=== PATIENT | female | born 1985 | race Hispanic/Latino ===

== ENCOUNTER 2020-05-11 08:19 | Emergency (ER) | payer SELFPAY ==
[2020-05-11] MEDS ORDERED: MEPERIDINE HCL 50 MG/ML ONE (09:26)
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
[2020-05-11] MEDS ORDERED: KETOROLAC 30 MG/ML INJ ONE (10:34)
[2020-05-11 10:48] VITALS: BP 121/91; TEMP 98.4; O2SAT 100
== END 2020-05-11 10:39 | disposition home or self-care (01) ==
LOC: ER 08:19
DX: S16.1XXA Strain of muscle, fascia and tendon at neck level, initial encounter (principal); S20.219A Contusion of unspecified front wall of thorax, initial encounter; V49.40XA Driver injured in collision with unspecified motor vehicles in traffic accident, initial encounter; F17.210 Nicotine dependence, cigarettes, uncomplicated
CPT/HCPCS: 71260; 72125; 96374; 96375; 99284; J2175; Q9967

== ENCOUNTER 2024-03-14 21:29 | Emergency (ER) | payer SELFPAY ==
--- OUTSIDE RECORDS SUMMARY | 2024-03-14 21:32 | XMS REPORT | Continuity of Care Document ---
Author Name Unknown Address [address] [place] [address]. [phone] [facility] thconnect Address [address] [place] [address] [phone] Care Team Providers Care Weather Anchor Name Role Phone KATHERINE VERDUZCO Attending Clinician Unavailable RODERICK MITCHELL Attending Clinician Unavailable [id number] Attending Clinician Unavailable CHASTITY CONWAY Attending Clinician Unavailab SEBAS Delgado Attending Clinician UnavailFARHAD Ford Attending Clinician UnaMARCY Sanchez Attending Clinician Unavail able LAB03 Attending Clinician Unavailable BOY JORDAN Attending Clinician Unavailable Sebastian Attending Clinician Unavailable Sebastian Admitting Clinician Unavailable Payers Payer Name Policy Type Policy Number Effective Date Expirati on Date Source AETNA [facility] 94 [place] 9 [id number] 2024 00:00:00 AETNA [facility] 2 [id number] 2024 00:00:00 Social History Social Habit Start Date Stop Date Quantity Comments Source Sexual orientation K shannon Pinto - External History of Social function 2024-01-17 00:00:00 2024-01-17 00:00:00 Kim Pinto - External Sex assigned at 1985 00:00:00 1985 00:00:00 Kim Pinto - External Smoking Status Start Date Stop Date Source Tobacco smoking consumption unknown Kim Pinto - External Medications Ordered Medication Name Filled Medication Name Start Date Stop Date Current Medication? Ordering Clinician Indication Dosage Frequency Signature (SIG) Comments Components Source Escitalopra m Oxalate 10 MG oral Tablet 01-16 00:00: 00 Yes [id number] 10mg Take 1 tablet (10 mg total) by mouth daily. Kim Harrisondon - Externa l Encounters Start Date/Time End Date/Time Encounter Type Admission Type Attending Rust Care Department Encounter ID Source 2024-05-10 10:00:00 2024-05-10 10:00:00 Outpatient KATHERINE VERDUZCO KIM ALVAREZ [id number] [facility] 2024-03-23 10:30:00 2024-03-23 10:30:00 Outpatient STEPHENRODERICK KIM ALVAREZ [id number] [facility] 2024-03-02 08:00:00 2024-03-02 08:00:00 Outpatient LAB59 KIM ALVAREZ [id number] [facility] 2024-02-24 10:00:00 2024-02-24 10:00:00 Outpatient LAB59 [facility] [id number] [facility]-17 13:30:00 2024-02-17 13:30:00 Outpatient CHASTITY CONWAY [id number] [facility] 2024-02-17 10:30:00 2024-02-17 10:30:00 Outpatient SEBAS MASSEY [id number] [facility] 2024-02-17 10:00:00 2024-02-17 10:00:00 Outpatient LAB59 [facility] [id number] [facility]24-02-13 16:00:00 2024-02-13 16:00:00 Outpatient CHASTITY CONWAY [id number] [facility] 2024-02-11 00:00:00 2024-02-11 00:00:00 Outpatient FARHAD GUO [id number] [facility] 2024-01-31 00:00:00 2024-01-31 00:00:00 Outpatient MARCY GRIGSBY [id number] [facility] 2024-01-31 00:00:00 2024-01-31 00:00:00 Outpatient MARCY GRIGSBY [id number] [facility] 2024-01-27 09:15:00 2024-01-27 09:15:00 Outpatient LAB03 KIM KIM [id number] [facility] 2024-01-27 09:00:00 2024-01-27 09:00:00 Outpatient LAB03 KIM KIM [id number] [facility] 2024-01-20 10:30:00 2024-01-20 10:30:00 Outpatient EDA JORDANGAIL KIM ALVAREZ [id number] [facility] 2024-01-18 14:05:00 2024-01-18 14:05:00 Outpatient MARCY GRIGSBY [facility] [id number] [facility]17 14:45:00 2024-01-17 14:45:00 [facility] [id number] [facility] 2024-01-17 12:00:00 2024-01-17 12:00:00 Outpatient FARHAD GUO [id number] [facility] 2024-01-11 00:00:00 2024-01-11 00:00:00 Outpatient Hawkins_M MMG MMG [id number] [facility] 2024-01-10 00:00:00 2024-01-10 00:00:00 Outpatient Hawkins_M MMG MMG [id number] [facility] 2023-12-12 00:00:00 2023-12-12 00:00:00 Outpatient Hawkins_M MMG MMG [id number] [facility]
[2024-03-14] MEDS ORDERED: ONDANSETRON 4 MG/2 ML VIAL ONE (22:48)
[2024-03-14] MEDS ORDERED: NA CHLORIDE 0.9% 1,000 ML ONE (22:49)
[2024-03-14] MEDS ORDERED: METOCLOPRAMIDE 10 MG/2mL INJ ONE (22:49)
[2024-03-14] MEDS ORDERED: DIPHENHYDRAMINE 50 MG/ML VIAL ONE (22:49)
[2024-03-14 23:08] LABS: Basophils % 0.4 % (0-1.3); Eosinophils % 1.6 % (0-4.4); Hematocrit 41.8 % (36.0-45.0); Lymphocytes % 30.1 % (15.3-44.8); MCH 31.2 pg (27.0-35.0); MCHC 33.5 g/dL (32.0-36.0); MCV 93.1 fL (80-100); MPV 8.5 fL (7.6-11.3); Monocytes % 6.8 % (3.3-12.3); Neutrophils % 61.1 % (41.7-73.7); Platelets 239 thou/uL (152-406); RBC Red Blood Cell Count 4.49 M/uL (3.86-4.86); Red Cell Distribution Width 12.8 % (12.1-15.2)
[2024-03-14 23:09] LABS: Absolute Eosinophils 0.1 K/uL (0-0.5); Absolute Lymphocytes (CBC) 2.5 K/uL (0.7-4.9); Absolute Monocytes 0.6 K/uL (0.1-1.3)
[2024-03-14 23:14] LABS: Albumin 3.7 g/dL (3.4-5.0); Albumin/Globulin Ratio 0.9 (1.1-1.8); Bilirubin Total 0.3 mg/dL (0.2-1.0); Globulin 4.1 g/dL (2.3-3.5); Protein, Total 7.8 g/dL (6.4-8.2)
[2024-03-14 23:45] LABS: SARS-CoV-2 Antigen CONTROL BLUE LINE VIS/BG OK; SARS-CoV-2 Antigen Rapid Res Negative (Negative)
[2024-03-15 00:26] LABS: Specific Gravity 1.015 (1.005-1.030)
[2024-03-15 00:45] LABS: Specific Gravity 1.015 (1.005-1.030); Sqamous Epithelial <5 /HPF (None Seen); Urine Bacteria None Seen /HPF (<20); Urine Bilirubin NEGATIVE (Negative); Urine Blood Negative (Negative); Urine Clarity Turbid (Clear); Urine Color Light-Yellow (Yellow); Urine Culture Reflex Order NOT NEEDED; Urine Glucose NEGATIVE (Negative); Urine Ketones 2+ (Negative); Urine Microscopic Reflex YN ORDER UMIC; Urine Mucus Slight /HPF (None Seen); Urine Nitrite NEGATIVE (Negative); Urine Protein NEGATIVE (Negative); Urine RBC None Seen /HPF (None Seen); Urine Urobilinogen Normal (Normal); Urine WBC <5 /HPF (<5)
--- NOTE | 2024-03-15 01:17 | ER ---
Nurse's Notes [facility] Name: Danielle Cody Age: 38 yrs Sex: Female : 1985 Arrival Date: 03/14/2024 Time: 21:29 Bed 18 Private MD: Diagnosis: Nausea with vomiting, unspecified;Headache Presentation: 03/14 21:43 Chief complaint: Patient states: vomiting, headache, started today at work. pt states as6 she feels very dehydrated. Coronavirus screen: At this time, the client does not indicate any symptoms associated with coronavirus-19. Ebola Screen: No symptoms or risks identified at this time. Initial Sepsis Screen: Does the patient meet any 2 criteria? No. Patient's initial sepsis screen is negative. Does the patient have a suspected source of infection? No. Patient's initial sepsis screen is negative. Risk Assessment: Do you want to hurt yourself or someone else? Patient reports no desire to harm self or others. Onset of symptoms was March 14, 2024. 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 - Infectious Disease History:: Denies. - Social history:: Smoking status: Reported history of juuling and/or vaping. Screenin:[facility] ED Fall Risk Assessment (Adult) History of falling in the last 3 months, tm6 including since admission No falls in past 3 months (0 pts) Confusion or Disorientation No (0 pts) Intoxicated or Sedated No (0 pts) Impaired Gait No (0 pts) Mobility Assist Device Used No (0 pt) Altered Elimination No (0 pt) Score/Fall Risk Level 0 - 2 = Low Risk Oriented to surroundings, Maintained a safe environment, Educated pt \T\ family on fall prevention, incl call for assistance when getting out of bed. Abuse screen: Denies threats or abuse. Denies injuries from another. Nutritional screening: No deficits noted. Tuberculosis screening: No symptoms or risk factors identified. Assessment: 21:51 General: Appears uncomfortable, Behavior is calm, cooperative. Pain: Complains of pain tm6 in face Pain currently is 8 out of 10 on a pain scale. Quality of pain is described as aching. Neuro: Level of Consciousness is awake, alert, obeys commands, Oriented to person, place, time, situation. Cardiovascular: Patient's skin is warm and dry. Respiratory: Airway is patent Respiratory effort is even, unlabored, Respiratory pattern is regular, symmetrical. GI: Abdomen is flat, non-distended, Reports nausea, vomiting. : No signs and/or symptoms were reported regarding the genitourinary system. EENT: No signs and/or symptoms were reported regarding the EENT system. Derm: No signs and/or symptoms reported regarding the dermatologic system. Musculoskeletal: No signs and/or symptoms reported regarding the musculoskeletal system. 23:20 Reassessment: Patient appears in no apparent distress at this time. Patient and/or tm6 family updated on plan of care and expected duration. Pain level reassessed. Patient is alert, oriented x 3, equal unlabored respirations, skin warm/dry/pink. 03/15 00:27 Reassessment: Patient appears in no apparent distress at this time. Patient states tm6 feeling better. Patient states symptoms have improved. 01:12 Reassessment: Patient appears in no apparent distress at this time. Patient and/or tm6 family updated on plan of care and expected duration. Pain level reassessed. Patient is alert, oriented x 3, equal unlabored respirations, skin warm/dry/pink. Patient states feeling better. Patient states symptoms have improved. Vital Signs: 03/14 21:43 BP 132 / 103; Pulse 83; Resp 18; Temp 98.2; Pulse Ox 99% ; Weight 108.86 kg; Height 5 as6 ft. 4 in. ; Pain 10/10; 23:18 BP 137 / 94; Pulse 88; Pulse Ox 97% on R/A; Pain 10/10; tm6 03/15 00:27 BP 131 / 89; Pulse 67; Pulse Ox 98% on R/A; Pain 0/10; tm6 01:12 BP 127 / 100; Pulse 67; Resp 19; Temp 98.1(TE); Pulse Ox 99% on R/A; Pain 0/10; tm6 03/14 21:43 Body Mass Index 41.20 (108.86 kg, 162.56 cm) as6 03/14 21:43 Pain Scale: Adult as6 23:18 Pain Scale: Adult tm6 03/15 00:27 Pain Scale: Adult tm6 01:12 Pain Scale: Adult tm6 ED Course: 03/14 21:34 Patient arrived in ED. gm2 21:38 Sadiq Crook PA is PHCP. cp 21:38 Raheel Nj MD is Attending Physician. cp 21:45 Triage completed. as6 21:46 Arm band placed on left wrist. as6 21:51 Galen Hinojosa, JUJU is Primary Nurse. tm6 21:51 Patient has correct armband on for positive identification. Bed in low position. Call tm6 light in reach. Side rails up X 1. Provided Education on: use of call dsouza. Client placed on continuous cardiac and pulse oximetry monitoring. NIBP monitoring applied. Pulse ox on. NIBP on. Door closed. Noise minimized. Lights dimmed. 22:46 CBC with Diff Sent. tm6 22:46 CMP Sent. tm6 22:46 Lipase Sent. tm6 22:46 Inserted saline lock: 20 gauge in left antecubital area, using aseptic technique. tm6 22:56 XRAY Chest (1 view) In Process Unspecified. EDMS 22:58 Influenza Screen (a \T\ B) Sent. tm6 22:58 SARS RAPID Sent. tm6 23:50 US Abdomen Limited: gallbladder In Process Unspecified. EDMS 03/15 00:02 Test, Urine Sent. tm6 00:02 Urinalysis w/ reflexes Sent. tm6 01:22 No provider procedures requiring assistance completed. IV discontinued, intact, tm6 bleeding controlled, No redness/swelling at site. Pressure dressing applied. Administered Medications: 03/14 22:58 Drug: Ondansetron IVP 4 mg IVP once; over 2 minutes Route: IVP; Site: left antecubital; tm6 22:59 Drug: NS 0.9% IV 1000 ml IV at 1 bolus Per protocol; 1000 mL bolus Route: IV; Rate: 1 tm6 bolus; Site: left antecubital; 03/15 01:23 Follow up: IV Status: Completed infusion; IV Intake: 1000ml tm6 03/14 22:59 Drug: metoCLOPramide IVP 10 mg IVP once; over 1 to 2 minutes Route: IVP; Site: left tm6 antecubital; 22:59 Drug: diphenhydrAMINE IVP 25 mg IVP once Route: IVP; Site: left antecubital; tm6 Medication: 21:51 VIS not applicable for this client. tm6 Intake: 03/15 01:23 IV: 1000ml; Total: 1000ml. tm6 Outcome: 01:16 Discharge ordered by . jaime 01:22 Discharged to home ambulatory, with family, tm6 01:22 Condition: stable 01:22 Discharge instructions given to patient, Instructed on discharge instructions, follow up and referral plans. medication usage, Demonstrated understanding of instructions, follow-up care, medications, Prescriptions given X 1, 01:23 Patient left the ED. tm6 Signatures: Dispatcher [employer] EDMS Sadiq Crook PA PA cp Slawson, Ashby, RN RN as6 Lisa Red 2 Galen Hinojosa RN RN tm6
--- NOTE | 2024-03-15 01:17 | EDPHYS ---
Physician Documentation [facility] Name: Danielle Cody Age: 38 yrs Sex: Female : 1985 Arrival Date: 03/14/2024 Time: 21:29 Bed 18 Private MD: ED Physician Raheel Nj HPI: 03/14 22:35 This 38 yrs old Female presents to ER via Ambulatory with complaints of cp Nausea/Vomiting. 22:35 The patient presents to the emergency department with nausea, with "dry heaves", cp vomiting, that is continuous. Onset: The symptoms/episode began/occurred today, while at work. Associated signs and symptoms: Pertinent positives: headache, Pertinent negatives: abdominal pain, constipation, diarrhea. 22:35 Possible causes: unknown. 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 - Infectious Disease History:: Denies. - Social history:: Smoking status: Reported history of juuling and/or vaping. ROS: 22:40 Constitutional: Negative for fever, cp 22:40 Eyes: Negative for injury, pain, redness, and discharge, cp 22:40 ENT: Negative for drainage from ear(s), ear pain, sore throat, difficulty swallowing, difficulty handling secretions, 22:40 Cardiovascular: Negative for chest pain, palpitations, 22:40 Respiratory: Negative for cough, shortness of breath, wheezing, 22:40 Abdomen/GI: Positive for nausea and vomiting, Negative for abdominal pain, diarrhea, constipation, hematemesis, 22:40 Back: Negative for pain at rest, pain with movement, 22:40 Neuro: Positive for headache, Negative for altered mental status, syncope, weakness, 22:40 All other systems are negative, Exam: 22:45 Constitutional: The patient appears in no acute distress, alert, awake, cp non-diaphoretic, non-toxic, well developed, well nourished, obese, uncomfortable, 22:45 Head/Face: Normocephalic, atraumatic. cp 22:45 Eyes: Periorbital structures: appear normal, Conjunctiva: normal, no exudate, no injection, Sclera: no appreciated abnormality, Lids and lashes: appear normal, bilaterally, 22:45 ENT: External ear(s): are unremarkable, Nose: is normal, Mouth: Lips: moist, Oral mucosa: pink and intact, moist, Posterior pharynx: Airway: no evidence of obstruction, patent, 22:45 Chest/axilla: Inspection: normal, 22:45 Cardiovascular: Rate: normal, Rhythm: regular, Edema: is not appreciated, JVD: is not appreciated, 22:45 Respiratory: the patient does not display signs of respiratory distress, Respirations: normal, no use of accessory muscles, no retractions, labored breathing, is not present, Breath sounds: are clear throughout, no decreased breath sounds, no stridor, no wheezing, 22:45 Abdomen/GI: Inspection: abdomen appears normal, Palpation: abdomen is soft and non-tender, in all quadrants, 22:45 Back: pain, is absent, that is moderate, of the left trapezius, right trapezius, left scapular area, right scapular area and thoracic area, ROM is normal, 22:45 Neuro: Orientation: to person, place \\T\\ time. Mentation: is normal, Cerebellar function: is grossly normal, Motor: moves all fours, Sensation: is normal, Vital Signs: 21:43 BP 132 / 103; Pulse 83; Resp 18; Temp 98.2; Pulse Ox 99% ; Weight 108.86 kg; Height 5 as6 ft. 4 in. ; Pain 10/10; 23:18 BP 137 / 94; Pulse 88; Pulse Ox 97% on R/A; Pain 10/10; tm6 03/15 00:27 BP 131 / 89; Pulse 67; Pulse Ox 98% on R/A; Pain 0/10; tm6 01:12 BP 127 / 100; Pulse 67; Resp 19; Temp 98.1(TE); Pulse Ox 99% on R/A; Pain 0/10; tm6 12 21:43 Body Mass Index 41.20 (108.86 kg, 162.56 cm) as6 03/14 21:43 Pain Scale: Adult as6 23:18 Pain Scale: Adult tm6 03/15 00:27 Pain Scale: Adult tm6 01:12 Pain Scale: Adult tm6 MDM: 03/14 21:48 Patient medically screened. 22:00 Differential diagnosis: Nonspecific abd pain, gastritis, cholecystitis, pancreatitis, cp appendicitis, viral gastroenteritis, gastroenteritis. 03/15 01:15 Data reviewed: vital signs, nurses notes, lab test result(s), radiologic studies, cp ultrasound, and as a result, I will discharge patient. 01:15 I considered the following discharge prescriptions or medication management in the emergency department Medications were administered in the Emergency Department. See MAR. Counseling: I had a detailed discussion with the patient and/or guardian regarding the historical points, exam findings, and any diagnostic results supporting the discharge/admit diagnosis, lab results, radiology results, to return to the emergency department if symptoms worsen or persist or if there are any questions or concerns that arise at home. Response to treatment: the patient's symptoms have markedly improved after treatment, vomiting resolved and patient tolerating po fluids, and as a result, I will discharge patient. 03/14 22:28 Order name: CBC with Diff; Complete Time: 00:38 03/15 00:44 Interpretation: Reviewed. 03/14 22:28 Order name: CMP; Complete Time: 00:38 03/15 00:44 Interpretation: Normal except: GLOB 4.1; A/G 0.9; Reviewed. 03/14 22:28 Order name: Lipase; Complete Time: 00:38 03/15 00:45 Interpretation: Reviewed. 03/14 22:28 Order name: Test, Urine; Complete Time: 00:38 03/14 22:28 Order name: Urinalysis w/ reflexes; Complete Time: 01:14 03/15 01:14 Interpretation: Normal except: UCLA Turbid; UKET 2+; UESTR 25. 03/14 22:40 Order name: SARS RAPID; Complete Time: 00:38 03/14 22:40 Order name: Influenza Screen (a \\T\\ B); Complete Time: 00:38 03/14 22:40 Order name: XRAY Chest (1 view) 03/14 22:40 Order name: US Abdomen Limited: gallbladder 03/14 22:28 Order name: IV Saline Lock; Complete Time: 22:46 03/14 22:28 Order name: Labs collected and sent; Complete Time: 22:46 03/15 00:39 Order name: PO challenge; Complete Time: 00:44 cp Administered Medications: 03/14 22:58 Drug: Ondansetron IVP 4 mg IVP once; over 2 minutes Route: IVP; Site: left antecubital; tm6 22:59 Drug: NS 0.9% IV 1000 ml IV at 1 bolus Per protocol; 1000 mL bolus Route: IV; Rate: 1 tm6 bolus; Site: left antecubital; 03/15 01:23 Follow up: IV Status: Completed infusion; IV Intake: 1000ml tm6 03/14 22:59 Drug: metoCLOPramide IVP 10 mg IVP once; over 1 to 2 minutes Route: IVP; Site: left tm6 antecubital; 22:59 Drug: diphenhydrAMINE IVP 25 mg IVP once Route: IVP; Site: left antecubital; tm6 Disposition: 03/15 03:36 Co-signature as Attending Physician, Raheel Nj MD I agree with the assessment sp4 and plan of care. I reviewed the patient's care provided by the Advanced Practice Provider and agree with the diagnosis and treatment plan. Disposition Summary: 03/15/24 01:16 Discharge Ordered Notes: Location: Home cp Problem: new cp Symptoms: have improved cp Condition: Stable cp Diagnosis - Nausea with vomiting, unspecified cp - Headache cp Followup: cp - With: Private Physician - When: 2 - 3 days - Reason: Recheck today's complaints Discharge Instructions: - Discharge Summary Sheet cp - General Headache Without Cause cp - Nausea and Vomiting, Adult cp Forms: - Medication Reconciliation Form cp - Antibiotic Education cp - Prescription Opioid Use cp - Patient Portal Instructions cp - Leadership Thank You Letter cp - Work release form tm6 Prescriptions: - Zofran 4 mg Oral Tablet - take 1 tablet ORAL route every 12 hours As needed; 20 tablet; Refills: 0, cp Product Selection Permitted Signatures: Dispatcher [employer] EDMS Sadiq Crook PA PA cp Jonnathan Tavera RN RN as6 Raheel Nj MD MD sp4 Galen Hinojosa RN RN tm6 Corrections: (The following items were deleted from the chart) 03/14 22:29 22:29 CBC+H.LAB.BRZ ordered. EDDE EDMS 22:29 22:29 COMPREHENSIVE METABOLIC PANEL+C.LAB.BRZ ordered. EDMS EDMS 22: 22:29 LIPASE+C.LAB.BRZ ordered. EDMS EDMS 22: 22:29 Test, Urine+UC.LAB.BRZ ordered. EDMS EDMS 22: 22:29 Urinalysis+U.LAB.BRZ ordered. EDMS EDMS 22: 22:41 Chest Single View+RAD.RAD.BRZ ordered. EDMS EDMS 22: 22:41 Abdomen Limited+US.RAD.BRZ ordered. EDMS EDMS 22: 22:41 SARS-COV-2 Antigen Rapid+I.LAB.BRZ ordered. EDMS EDMS 22: 22:41 Influenza Screen (A \\T\\ B)+BA.LAB.BRZ ordered. EDMS EDMS
[2024-03-15 01:43] VITALS: BP 127/100; TEMP 98.1; O2SAT 99
--- NOTE | 2024-03-16 06:07 | RAD REPORT ---
EXAM DESCRIPTION: RAD - Chest Single View - 03/14/2024 10:55 pm CLINICAL HISTORY: Vomiting TECHNIQUE: Frontal view of the chest. COMPARISON: No relevant prior studies available. FINDINGS: Lungs: Unremarkable. No consolidation. Pleural space: Unremarkable. No pneumothorax. Heart: Unremarkable. No cardiomegaly. Mediastinum: Unremarkable. Normal mediastinal contour. Bones/joints: Unremarkable. No acute fracture. IMPRESSION: No acute disease. Electronically signed by: Monet Harvey MD 03/14/2024 11:28 PM CDT Due to temporary technical issues with the PACS/Fluency reporting system, reports are being signed by the in house radiologists without review as a courtesy to insure prompt reporting. The interpreting radiologist is fully responsible for the content of the report.
--- NOTE | 2024-03-16 06:25 | RAD REPORT ---
EXAM DESCRIPTION: US - Abdomen Exam Limited - 03/14/2024 11:48 pm CLINICAL HISTORY: Vomiting COMPARISON: None. TECHNIQUE: Real-time sonographic images of the right upper abdomen were obtained using a curved mult ihertz transducer. Large body habitus. FINDINGS: Liver: The visualized liver has normal contour and echogenicity. The common bile duct chilo ures 0.4 cm. Gallbladder: No gallstones identified. Gallbladder wall thickness of 0.1 cm. Sonographic Chong's sign is negative. IMPRESSION: No gallstones identified. Electronically signed by: Srikanth Anthony DO 03/15/2024 12:29 AM CDT RP [id number] Due to temporary technical issues with the PACS/Fluency reporting system, reports are being signed by the in house radiologists without review as a courtesy to insure prompt reporting. The interpreting radiologist is fully responsible for the content of the report.
== END 2024-03-15 01:23 | disposition home or self-care (01) ==
LOC: ER 21:29
DX: R11.2 Nausea with vomiting, unspecified (principal); R51.9 Headache, unspecified
CPT/HCPCS: 36415; 71045; 76705; 80053; 81001; 81025; 83690; 85025; 87804; 87811; 96361; 96374; 96375; 99284; J1200; J2405; J2765; J7030

== ENCOUNTER 2025-01-07 06:48 | Emergency (ER) | payer OTHER ==
--- OUTSIDE RECORDS SUMMARY | 2025-01-07 06:51 | XMS REPORT | Continuity of Care Document ---
Author Name Unknown Address [address] [facility] [address] [place] [address] [facility] Address [address] [facility] [address] [place] [address] Care Team Providers Care Academic Tutor Name Role Phone DOTTIE WILEY Attending Clinician Unava RODERICK Douglas Attending Clinician Unavailable HARPREET MONTANO Attending Clinician Unavailab MARGY Rolle Attending Clinician Unavailable ANTON SNELL Attending Clinician Unavailable LAB47 Attending Clinician Unavailable HANG DELANEY Attending Clinician Unavailable PERRI ESCOBAR Attending Clinician UnavailCHASTITY Reese Attending Clinician Unavailab LILIYA Banegas Attending Clinician Unavailable BRITTANY LIGHT Attending Clinician Unavailable JAMAAL CHEUNG Attending Clinician Unavailable LAB90 Attending Clinician Unavailable KATHERINE VERDUZCO Attending Clinician Unavailable MARCY GRIGSBY Attending Clinician Unavail able FARHAD GUO Attending Clinician Unavai lable LAB59 Attending Clinician Unavailable SEBAS MASSEY Attending Clinician Unavaila ble LAB03 Attending Clinician Unavailable BOY JORDAN Attending Clinician Unavailable Sebastian Attending Clinician Unavailable Zoë_Keon Admitting Clinician Unavailable Payers Payer Name Policy Type Policy Number Effective Date Expirati on Date Source AETBERNARD DELACRUZ 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 ON 9 [id number] 2024 00:00:00 [facility] MYRNA DEVLIN COPAY FOCUS 9 [id number] 2024 00:00:00 [employer] 2 [id number] 2024 00:00:00 Problems Condition Name Condition Details Condition Category Status Onset Date Resolution Date Last Treatment Date Treating Clinician Comments Source Pain in pelvis Pain in Pelvis Problem Active 12-21 00:00: 00 [facility] Body mass index 30+ - obesity Body Mass Index 30+ - Obesity Problem Active 12-07 00:00: 00 [facility] Anxiety Anxiety Problem Active 12-07 00:00: 00 [facility] Depressive disorder Depressive Disorder Problem Active 12-07 00:00: 00 [facility] Gastric reflux Gastric Reflux Problem Active 12-07 00:00: 00 [facility] Dysmenorrh ea Dysmenorrh ea Problem Active 12-07 00:00: 00 [facility] Menometror rhagia Menometror rhagia Problem Active 12-07 00:00: 00 [facility] Polycystic ovary syndrome Polycystic Ovary Syndrome Problem Active 12-07 00:00: 00 [facility] Current moderate episode of major depressive disorder without prior episode Current moderate episode of major depressive disorder without prior episode Disease Active 03-27 00:00: 00 Kenyetta Seybold - Externa l Irritabili ty Irritabili ty Disease Active 03-27 00:00: 00 Kenyetta Seybold - Externa l KRYSTIAN (generaliz ed anxiety disorder) KRYSTIAN (generaliz ed anxiety disorder) Disease Active 03-27 00:00: 00 Kenyetta Seybold - Externa l Skin tag Skin tag Disease Active 03-27 00:00: 00 Kenyetta Seybold - Externa l BMI 40.0-44.9, adult BMI 40.0-44.9, adult Disease Active 03-27 00:00: 00 Kenyetta Seybold - Externa l Gastroesop hageal reflux disease Gastroesop hageal reflux disease Disease Active 03-27 00:00: 00 Keynetta Seybold - Externa l Alopecia areata Alopecia areata Disease Active 03-27 00:00: 00 Kenyetta Seybold - Externa l Hyperactiv ity disorder Hyperactiv ity disorder Disease Active 03-27 00:00: 00 Kenyetta Seybold - Externa l Social History Social Habit Start Date Stop Date Quantity Comments Source ASSERTION Not Kenyetta Millie Dipika External Sexual orientation Angel Pinto - External Alcoholic beverage intake 2024-10-05 00:00:00 2024-10-05 00:00:00 .29 /d Kenyetta Harrisondon - External Alcohol Comment 2024-03-23 00:00:00 2024-03-23 00:00:00 social Kenyetta Harrisondon - External History of Social function 2024-03-23 00:00:00 2024-03-23 00:00:00 Kenyetta Harrisonignaciaida - External Sex 2023-07-07 17:42:06 2023-07-07 17:42:06 Female (finding) Kenyetta Harrisondon - External Sex assigned at 1985 00:00:00 1985 00:00:00 Kenyetta Pinto - External Smoking Status Start Date Stop Date Source Tobacco smoking consumption unknown Kenyetta Harrisondon Bar External Current Some Day Smoker [facility] Never smoked tobacco Kenyetta Seignaciaida - External Medications Ordered Medication Name Filled Medication Name Start Date Stop Date Current Medication? Ordering Clinician Indication Dosage Frequency Signature (SIG) Comments Components Source Omeprazole 40 MG oral Delayed Release Capsule 10-04 00:00: 00 Yes [id number] 40mg QD Take 1 capsule (40 mg total) by mouth daily. Kenyetta verduzco Clobetasol Propionate 0.05 % apply externally Solution 2023-10 00:00: 00 Yes [id number] APPLY SOLUTION TOPICALLY TO AFFECTED AREA ON SCALP TWICE DAILY TUESDAY - TUESDAY , HOLD ON WEEKENDS. Kenyetta verduzco Triamcinolo ne Acetonide 0.1 % apply externally Cream 2023-10 00:00: 00 09-16 05:59 :00 No [id number] Apply to affected area on both arms, do not apply to face or groin. Kenyetta verduzco dexAMETHaso ne 1 MG oral Tablet 2023-10 00:00: 00 Yes [id number] To be taken once at 11 pm : the night before cortisol check. Kenyetta verduzco Omeprazole 40 MG oral Delayed Release Capsule 2023-10 00:00: 00 Yes [id number] 40mg QD Take 1 capsule (40 mg total) by mouth daily. Kenyetta verduzco Terbinafine HCl 250 MG oral Tablet 2023-10 00:00: 00 Yes [id number] Take 1 tablet daily for 12 weeks.. Kenyetta verduzco Omeprazole 40 MG oral Delayed Release Capsule 2023-10 00:00: 00 Yes [id number] 40mg QD Take 1 capsule (40 mg total) by mouth daily. Kenyetta verduzco Ibuprofen (MOTRIN) 800 MG oral Tablet 2023-10 00:00: 00 Yes [id number] 800mg Q.25D Take 1 tablet (800 mg total) by mouth every 6 hours as needed for pain. Kenyetta verduzco FLUTICASONE PROPIONATE, NASAL, 50 MCG/ACT nasal Suspension 06-28 00:00: 00 Yes [id number] 50ug QD Use 1 spray (50 mcg total) in each nostril daily. Kenyetta verduzco predniSONE (DELTASONE) 20 MG oral tablet 06-28 00:00: 00 07-04 04:59 :00 No [id number] 20mg QD Take 1 tablet (20 mg total) by mouth daily for 5 days. Kenyetta verduzco Azithromyci n 250 MG oral Tablet 06-28 00:00: 00 07-04 04:59 :00 No [id number] Take 2 tablets by mouth on day 1 then 1 tablet by mouth daily for 4 days thereafter .. Kenyetta verduzco Clobetasol Propionate 0.05 % apply externally Solution 06-15 00:00: 00 08-16 00:00 :00 No [id number] Apply to affected areas on scalp twice daily M-F. Hold on weekends.. Kenyetta verduzco Na Sulfate-K Sulfate-Mg Sulf (SUPREP BOWEL PREP KIT) 17.5-3.13-1 .6 GM/177ML oral Solution 06-08 00:00: 00 08-16 00:00 :00 No MIX DIRECTED ON BOX THEN TAKE A SPLIT DOSE: FIRST DOSE AT 7PM THE EVENING BEFORE PROCEDURE AND SECOND DOSE 4 HOURS PRIOR TO PROCEDURE CHECK IN Kenyetta verduzco Betamethaso ne Dipropionat e 0.05 % apply externally Cream 17 00:00: 00 07-06 00:00 :00 No [id number] 1{appli cation} QD Apply 1 Applicatio n topically daily. Kenyetta verduzco Aug Betamethaso ne Dipropionat e 0.05 % apply externally Gel 05-16 00:00: 00 06-16 04:59 :00 No [id number] 1{appli cation} QD Apply 1 Applicatio n topically daily. Kenyetta verduzco Phenazopyri dine HCl 200 MG oral Tablet 05-10 00:00: 00 05-24 00:00 :00 No [id number] 200mg Q.[id number] 3D Take 1 tablet (200 mg total) by mouth 3 times daily as needed for pain. Kenyetta verduzco Nitrofurant oin Monohyd Macro (Macrobid) 100 MG oral Capsule 05-10 00:00: 00 05-24 00:00 :00 No [id number] 100mg Q.5D Take 1 capsule (100 mg total) by mouth 2 times daily. Kenyetta verduzco Aug Betamethaso ne Dipropionat e 0.05 % apply externally Gel 04-24 00:00: 00 05-25 04:59 :00 No [id number] 1{appli cation} QD Apply 1 Applicatio n topically daily. Kenyetta verduzco Cholecalcif kathy (Vitamin D) 50 MCG (2000 UT) oral Capsule 25 00:00: 00 Yes [id number] 2000U QD Take 1 capsule (2,000 units total) by mouth daily. Kenyetta verduzco Betamethaso ne Dipropionat e 0.05 % apply externally Cream 03-23 00:00: 00 Yes [id number] 1{appli cation} QD Apply 1 Applicatio n topically daily. Kenyetta Millie verduzco Escitalopra m Oxalate 10 MG oral Tablet 03-23 00:00: 00 03-23 00:00 :00 No 10mg Take 1 tablet (10 mg total) by mouth daily. Kenyetta verduzco Ondansetron HCl 4 MG oral Tablet 03-15 00:00: 00 06-15 00:00 :00 No 4mg Take 1 tablet (4 mg total) by mouth every 12 hours as needed. Kenyetta verduzco Escitalopra m Oxalate 10 MG oral Tablet 03-13 00:00: 00 03-23 00:00 :00 No [id number] 10mg Take 1 tablet by mouth once daily Kenyetta Millie verduzco Escitalopra m Oxalate 10 MG oral Tablet 4-16 00:00: 00 Yes [id number] 10mg Take 1 tablet (10 mg total) by mouth daily. Kenyetta verduzco minoxidil 2.5 mg tablet TAKE 1/2 (ONE-HALF) TABLET BY MOUTH ONCE DAILY minoxidil 2.5 mg tablet TAKE 1/2 (ONE-HALF) TABLET BY MOUTH ONCE DAILY No minoxidil 2.5 mg tablet TAKE 1/2 (ONE-HALF) TABLET BY MOUTH ONCE DAILY [facility] omeprazole 20 mg capsule,del ayed release TAKE 1 CAPSULE BY MOUTH EVERY DAY omeprazole 20 mg capsule,del ayed release TAKE 1 CAPSULE BY MOUTH EVERY DAY No omeprazole 20 mg capsule,de layed release TAKE 1 CAPSULE BY MOUTH EVERY DAY [facility] phentermine 37.5 mg tablet TAKE 1 TABLET BY MOUTH ONCE DAILY phentermine 37.5 mg tablet TAKE 1 TABLET BY MOUTH ONCE DAILY No phentermin e 37.5 mg tablet TAKE 1 TABLET BY MOUTH ONCE DAILY [facility] sertraline 50 mg tablet TAKE 1 TABLET BY MOUTH ONCE DAILY sertraline 50 mg tablet TAKE 1 TABLET BY MOUTH ONCE DAILY No sertraline 50 mg tablet TAKE 1 TABLET BY MOUTH ONCE DAILY [facility] spironolact one 100 mg tablet TAKE 1 TABLET BY MOUTH ONCE DAILY AT BEDTIME WITH A FULL GLASS OF WATER spironolact one 100 mg tablet TAKE 1 TABLET BY MOUTH ONCE DAILY AT BEDTIME WITH A FULL GLASS OF WATER No spironolac tone 100 mg tablet TAKE 1 TABLET BY MOUTH ONCE DAILY AT BEDTIME WITH A FULL GLASS OF WATER [facility] Vital Signs Vital Name Observation Time Observation Value Comments S ource BP Diastolic 2024-12-21 00:00:00 90 mm[Hg] [facility] BMI (Body Mass Index) 2024-12-21 00:00:00 38.6 kg/m2 [facility] Height 2024-12-21 00:00:00 64 [in_i] [facility] BP Systolic 2024-12-21 00:00:00 127 mm[Hg] [facility] Body Weight 2024-12-21 00:00:00 225 [lb_av] [facility] BP Diastolic 2024-12-07 00:00:00 89 mm[Hg] [facility] BMI (Body Mass Index) 2024-12-07 00:00:00 38.3 kg/m2 [facility] Body Weight 2024-12-07 00:00:00 223 [lb_av] [facility] BP Systolic 2024-12-07 00:00:00 119 mm[Hg] [facility] Height 2024-12-07 00:00:00 64 [in_i] [facility] Systolic blood pressure 2024-08-16 21:31:00 130 mm[Hg] Kenyetta Seybo ld - External Diastolic blood pressure 2024-08-16 21:31:00 86 mm[Hg] Kenyetta Seybo ld - External Heart rate 2024-08-16 21:31:00 90 /min Kelse y Seybold - External Body temperature 2024-08-16 21:31:00 36.72 Ashley Kenyetta Seybold - External Respiratory rate 2024-08-16 21:31:00 18 /min Kenyetta Seybold - External Body height 2024-08-16 21:31:00 162.6 cm Areli ey Seybold - External Body weight 2024-08-16 21:31:00 106.595 kg Areli ey Seybold - External BMI 2024-08-16 21:31:00 40.34 kg/m2 Areli ey Seybold - External Systolic blood pressure 2024-07-06 18:12:00 124 mm[Hg] Kenyetta Seybo ld - External Diastolic blood pressure 2024-07-06 18:12:00 78 mm[Hg] Kenyetta Seybo ld - External Heart rate 2024-07-06 18:12:00 102 /min Kelse y Seybold - External Body temperature 2024-07-06 18:12:00 36.06 Ashley Kenyetta Seybold - External Respiratory rate 2024-07-06 18:12:00 15 /min Kenyetta Seybold - External Body height 2024-07-06 18:12:00 162.6 cm Areli ey Seybold - External Body weight 2024-07-06 18:12:00 108.863 kg Areli ey Seybold - External BMI 2024-07-06 18:12:00 41.20 kg/m2 Areli ey Seybold - External Systolic blood pressure 2024-06-28 18:27:00 129 mm[Hg] Kenyetta Seybo ld - External Diastolic blood pressure 2024-06-28 18:27:00 83 mm[Hg] Kenyetta Seybo ld - External Heart rate 2024-06-28 18:27:00 94 /min Kelse y Seybold - External Body temperature 2024-06-28 18:27:00 37.17 Ashley Kenyetta Seybold - External Respiratory rate 2024-06-28 18:27:00 20 /min Kenyetta Seybold - External Body height 2024-06-28 18:27:00 162.6 cm Areli ey Seybold - External Body weight 2024-06-28 18:27:00 107.502 kg Areli ey Seybold - External BMI 2024-06-28 18:27:00 40.68 kg/m2 Areli ey Seybold - External Systolic blood pressure 2024-05-24 15:37:00 116 mm[Hg] Kenyetta Seybo ld - External Diastolic blood pressure 2024-05-24 15:37:00 78 mm[Hg] Kenyetta Seybo ld - External Heart rate 2024-05-24 15:37:00 84 /min Kelse y Seybold - External Body temperature 2024-05-24 15:37:00 36.89 Ashley Kenyetta Seybold - External Respiratory rate 2024-05-24 15:37:00 20 /min Kenyetta Seybold - External Body height 2024-05-24 15:37:00 162.6 cm Areli ey Seybold - External Body weight 2024-05-24 15:37:00 111.585 kg Areli ey Seybold - External BMI 2024-05-24 15:37:00 42.23 kg/m2 Areli ey Seybold - External Oxygen saturation in Arterial blood by Pulse oximetry 2024-05-24 15:37:00 98 /min Kenyetta Seybo ld - External Systolic blood pressure 2024-04-24 14:43:00 120 mm[Hg] Kenyetta Seybo ld - External Diastolic blood pressure 2024-04-24 14:43:00 80 mm[Hg] Kenyetta Seybo ld - External Heart rate 2024-04-24 14:43:00 87 /min Kelse y Seybold - External Body temperature 2024-04-24 14:43:00 35.56 Ashley Kenyetta Seybold - External Respiratory rate 2024-04-24 14:43:00 16 /min Kenyetta Seybold - External Body height 2024-04-24 14:43:00 162.6 cm Areli ey Seybold - External Body weight 2024-04-24 14:43:00 110.678 kg Areli ey Seybold - External BMI 2024-04-24 14:43:00 41.88 kg/m2 Areli ey Seybold - External Systolic blood pressure 2024-03-23 15:24:00 110 mm[Hg] Kenyetta Seybo ld - External Diastolic blood pressure 2024-03-23 15:24:00 78 mm[Hg] Kenyetta Seybo ld - External Heart rate 2024-03-23 15:24:00 80 /min Kelse y Seybold - External Body temperature 2024-03-23 15:24:00 36.33 Ashley Kenyetta Seybold - External Respiratory rate 2024-03-23 15:24:00 16 /min Kenyetta Seybold - External Body height 2024-03-23 15:24:00 162.6 cm Areli ey Seybold - External Body weight 2024-03-23 15:24:00 112.492 kg Areli ey Seybold - External BMI 2024-03-23 15:24:00 42.57 kg/m2 Areli ey Seybold - External Procedures Procedure Date / Time Performed Performing [facility] n Source CT, abdomen + pelvis, w/ contrast 2024-12-21 00:00:00 [facility] US TRANSVAGINAL 2024-12-14 00:00:00 [facility] a Medical Ligation of Fallopian Tube 2008-10-03 00:00:00 [facility] Medical Encounters Start Date/Time End Date/Time Encounter Type Admission Type Attending [facility] Care Facility Care Department Encounter ID Source 2024-12-21 00:00:00 2024-12-21 00:00:00 Karolyn Mcknight, SOFTWARE DEVELOPMENT ADVISOR: [address], [place] [address] , Ph. [facility] GC_GCBZW_Carlotta Leggett* [id number] [facility] 2024-12-14 00:00:00 2024-12-14 00:00:00 Divya Fermin MD: [address], [place] [address] , Ph. [facility] GC_GCBZW_Carlotta Leggett* [id number] [facility] 2024-12-07 00:00:00 2024-12-07 00:00:00 HUE Langford: [address], [place] [address] , Ph. [facility] GC_GCBZW_Carlotta Leggett* [id number] [facility] 2024-11-19 11:30:00 2024-11-19 11:30:00 Outpatient DOTTIE WILEY [id number] [facility] 2024-10-31 00:00:00 2024-10-31 00:00:00 Outpatient DOTTIE WILEY [id number] Kenyetta don 2024-10-31 00:00:00 2024-10-31 00:00:00 Outpatient RODERICK MITCHELL [id number] [facility] 2024-10-18 14:30:00 2024-10-18 14:30:00 Outpatient RODERICK MITCHELL KENYETTA ALVAREZ [id number] Kenyetta Seybold 2024-10-16 13:00:00 2024-10-16 13:00:00 Outpatient KENYETTA ALVAREZ [id number] Kenyetta Seybold 2024-10-05 11:15:00 2024-10-05 11:15:00 Outpatient DOTTIE WILEY [id number] Kenyetta Seybold 2024-10-03 00:00:00 2024-10-03 00:00:00 Outpatient STEPHEN RODERICK KENYETTA ALVAREZ [id number] Kenyetta Seybold 2024-09-29 00:00:00 2024-09-29 00:00:00 Outpatient STEPHEN RODERICK ALVAREZ [id number] Kenyetta Seybold 2024-09-28 14:00:00 2024-09-28 14:00:00 Outpatient HARPREET MONTANO [id number] Kenyetta Seybold 2024-09-19 00:00:00 2024-09-19 00:00:00 Outpatient KENYETTA ALVAREZ [id number] Kenyetta Seybold 2024-09-08 00:00:00 2024-09-08 00:00:00 Outpatient WILEY DOTTIE ALVAREZ [id number] Kenyetta Seybold 2024-09-04 00:00:00 2024-09-04 00:00:00 Outpatient STEPHEN RODERICK KENYETTA ALVAREZ [id number] Kenyetta Seybold 2024-08-27 12:00:00 2024-08-27 12:00:00 Outpatient WILEY DOTTIE ALVAREZ [id number] Kenyetta Seybold 2024-08-22 09:00:00 2024-08-22 09:00:00 Outpatient KENYETTA ALVAREZ [id number] Kenyetta Seybold 2024-08-22 08:00:00 2024-08-22 08:00:00 Outpatient KENYETTA ALVAREZ [id number] Kenyetta Seybold 2024-08-21 09:30:00 2024-08-21 09:30:00 Outpatient KENYETTA ALVAREZ [id number] Kenyetta Seybold 2024-08-21 09:30:00 2024-08-21 09:30:00 Outpatient KENYETTA ALVAREZ [id number] Kenyetta ybida 2024-08-20 00:00:00 2024-08-20 00:00:00 Outpatient KENYETTA ALVAREZ [id number] Kenyetta Seybida 2024-08-18 14:45:00 2024-08-18 14:45:00 Outpatient MARGY RICHTER KENYETTA ALVAREZ [id number] [facility] 2024-08-17 08:30:00 2024-08-17 08:30:00 Outpatient KENYETTA ALVAREZ [id number] Kenyetta Seybold 2024-08-17 00:00:00 2024-08-17 00:00:00 Outpatient SNELLANTON [id number] [facility] 2024-08-16 16:30:00 2024-08-16 16:30:00 [id number] [facility] 2024-08-16 15:45:00 2024-08-16 15:45:00 Outpatient HANG DELANEY KENYETTA ALVAREZ [id number] [facility] 2024-08-10 08:30:00 2024-08-10 08:30:00 Outpatient PERRI ESCOBAR [id number] [facility] 2024-08-10 00:00:00 2024-08-10 00:00:00 Outpatient RODERICK MITCHELL [id number] [facility] 2024-08-09 15:00:00 2024-08-09 15:00:00 Outpatient RODERICK MITCHELL [id number] Kenyetta Seybold 2024-08-08 15:00:00 2024-08-08 15:00:00 Outpatient CHASTITY CONWAY [id number] [facility] 2024-08-03 00:00:00 2024-08-03 00:00:00 Outpatient ANTON SNELL [id number] Kenyetta Seybold 2024-07-31 00:00:00 2024-07-31 00:00:00 Outpatient KENYETTA ALVAREZ [id number] Kenyetta Seybold 2024-07-30 11:00:00 2024-07-30 11:00:00 Outpatient LILIYA HOPKINS KENYETTA ALVAREZ [id number] Kenyetta Seybold 2024-07-26 11:45:00 2024-07-26 11:45:00 Outpatient LAB47 KENYETTA ALVAREZ [id number] Kenyetta Seybold 2024-07-26 11:15:00 2024-07-26 11:15:00 Outpatient DOTTIE WILEY KENYETTA ALVAREZ [id number] Kenyetta Seybold 2024-07-18 00:00:00 2024-07-18 00:00:00 Outpatient KENYETTA ALVAREZ [id number] Kenyetta Seybold 2024-07-13 00:00:00 2024-07-13 00:00:00 Outpatient KENYETTA ALVAREZ [id number] Kenyetta Seybold 2024-07-06 13:30:00 2024-07-06 13:30:00 Outpatient RODERICK MITCHELL [id number] Kenyetta Seybold 2024-07-02 10:00:00 2024-07-02 10:00:00 Outpatient RODERICK MITCHELL [id number] Kenyetta Seybold 2024-06-28 14:00:00 2024-06-28 14:00:00 Outpatient BRITTANY LIGHT [id number] Ken[place] Seybold 2024-06-26 14:00:00 2024-06-26 14:00:00 Outpatient JAMAAL CHEUNG [id number] Kenyetta Seybold 2024-06-15 13:00:00 2024-06-15 13:00:00 Outpatient WILEY DOTTIE ALVAREZ [id number] Kenyetta Seybold 2024-06-15 00:00:00 2024-06-15 00:00:00 Outpatient RODERICK MITCHELL [id number] Kenyetta Seybold 2024-05-30 07:50:00 2024-05-30 07:50:00 Outpatient LAB90 KENYETTA ALVAREZ [id number] Kenyetta Seybold 2024-05-30 00:00:00 2024-05-30 00:00:00 Outpatient HUNDL, RODERICK KENYETTA ALVAREZ [id number] Kenyetta Seybold 2024-05-30 00:00:00 2024-05-30 00:00:00 Outpatient KENYETTA ALVAREZ [id number] Kenyetta Seybold 2024-05-24 11:00:00 2024-05-24 11:00:00 Outpatient HUNDL, RODERICK ALVAREZ [id number] [facility] 2024-05-22 00:00:00 2024-05-22 00:00:00 Outpatient HUNDL, RODERICK ALVAREZ [id number] Kenyetta Seybold 2024-05-17 00:00:00 2024-05-17 00:00:00 Outpatient HUNDL, RODERICK ALVAREZ [id number] [facility] 2024-05-16 00:00:00 2024-05-16 00:00:00 Outpatient HUNDL, RODERICK ALVAREZ [id number] [facility] 2024-05-14 00:00:00 2024-05-14 00:00:00 Outpatient HUNDL, RODERICK KENYETTA ALVAREZ [id number] [facility] 2024-05-14 00:00:00 2024-05-14 00:00:00 Outpatient HUNDL, RODERICK ALVAREZ [id number] [facility] 2024-05-10 16:30:00 2024-05-10 16:30:00 Outpatient LAB90 KENYETTA ALVAREZ [id number] Kenyetta Seybold 2024-05-10 10:00:00 2024-05-10 10:00:00 Outpatient KATHERINE VERDUZCO [id number] Ken[place]etta Seybold 2024-05-10 00:00:00 2024-05-10 00:00:00 Outpatient HUNDL, RODERICK ALVAREZ [id number] Kenyetta Seybold 2024-05-10 00:00:00 2024-05-10 00:00:00 Outpatient HUNDL, RODERICK ALVAREZ [id number] Kenyetta Seybold 2024-05-10 00:00:00 2024-05-10 00:00:00 Outpatient HUNDL, RODERICK ALVAREZ [id number] Kenyetta Seybold 2024-05-10 00:00:00 2024-05-10 00:00:00 Outpatient HUNDL, RODERICK ALVAREZ [id number] Kenyetta Seybold 2024-05-10 00:00:00 2024-05-10 00:00:00 Outpatient HUNDL, RODERICK ALVAREZ [id number] Kenyetta Seybold 2024-05-08 00:00:00 2024-05-08 00:00:00 Outpatient HUNDL, RODERICK ALVAREZ [id number] Kenyetta Seybold 2024-04-24 10:00:00 2024-04-24 10:00:00 Outpatient HUNDL, RODERICK ALVAREZ [id number] Kenyetta Seybold 2024-04-18 00:00:00 2024-04-18 00:00:00 Outpatient HUNDL, RODERICK ALVAREZ [id number] Kenyetta Seybold 2024-04-14 00:00:00 2024-04-14 00:00:00 Outpatient HUNDL, RODERICK ALVAREZ [id number] Kenyetta Seybold 2024-03-27 00:00:00 2024-03-27 00:00:00 Outpatient AL ZEYNEPJULIO ARTUROTANA KENYETTA ALVAREZ [id number] Kenyetta Seybold 2024-03-27 00:00:00 2024-03-27 00:00:00 Outpatient HUNDL, RODERICK ALVAREZ [id number] Kenyetta Seybold 2024-03-23 11:30:00 2024-03-23 11:30:00 Outpatient LAB90 KENYETTA ALVAREZ [id number] Kenyetta Seybold 2024-03-23 10:30:00 2024-03-23 10:30:00 Outpatient HUNDL, RODERICK ALVAREZ [id number] [place]yetta Seybold 2024-03-23 00:00:00 2024-03-23 00:00:00 Outpatient HUNDL, RODERICK ALVAREZ [id number] Kenyetta Seybold 2024-03-13 00:00:00 2024-03-13 00:00:00 Outpatient FARHAD GUO [id number] Kenyetta Seybold 2024-03-02 08:00:00 2024-03-02 08:00:00 Outpatient LAB59 KENYETTA ALVAREZ [id number] [facility] 2024-[facility]-24 10:00:00 2024-02-24 10:00:00 Outpatient LAB59 KENYETTA ALVAREZ [id number] [facility] 2024-02-17 13:30:00 2024-02-17 13:30:00 Outpatient CHASTITY CONWAY KENYETTA ALVAREZ [id number] [facility] 2024-02-17 10:30:00 2024-02-17 10:30:00 Outpatient SEBAS MASSEY [id number] [facility] 2024-02-17 10:00:00 2024-02-17 10:00:00 Outpatient LAB59 KENYETTA ALVAREZ [id number] [facility] 2024-02-13 16:00:00 2024-02-13 16:00:00 Outpatient MAN CHASTITY KENYETTA ALVAREZ [id number] [facility] 00:00:00 2024-02-11 00:00:00 Outpatient FARHAD GUO [id number] [place] [facility] 2024-01-31 00:00:00 2024-01-31 00:00:00 Outpatient MARCY GRIGSBY [id number] [place] [facility] 2024-01-31 00:00:00 2024-01-31 00:00:00 Outpatient MARCY GRIGSBY [id number] [place] [facility] 2024-01-27 09:15:00 2024-01-27 09:15:00 Outpatient LAB03 KENYETTA ALVAREZ [id number] [place] [facility] 2024-01-27 09:00:00 2024-01-27 09:00:00 Outpatient LAB03 KENYETTA ALVAREZ [id number] [place] [facility] 2024-01-20 10:30:00 2024-01-20 10:30:00 Outpatient BOY JORDAN [id number] [place] [facility] 2024-01-18 14:05:00 2024-01-18 14:05:00 Outpatient MARCY GRIGSBY [id number] [place] [facility] 2024-01-17 14:45:00 2024-01-17 14:45:00 Outpatient MARCY GRIGSBY [id number] [place] 2024-01-17 12:00:00 2024-01-17 12:00:00 Outpatient FARHAD GUO [id number] [place] [facility] 2024-01-11 00:00:00 2024-01-11 00:00:00 Outpatient Hawkins_M MMG MMG [id number] [facility] 2024-01-10 00:00:00 2024-01-10 00:00:00 Outpatient Hawkins_M MMG MMG [id number] [facility] 2023-12-12 00:00:00 2023-12-12 00:00:00 Outpatient Hawkins_M MMG [id number] [facility] Results Test Description Test Time Test Comments Results Result Co mments Source [facility] [Mass/volume] in Serum or [id number] 00:00:00* Test Item Value Reference Range Interpretation Comme nts DHEA-S (test code = DHEA-S) 232.0 ug/dL 98.8-340.0 [facility] Differential panel - [id number] 00:00:00* Test Item Value Reference Range Interpretation Comme nts WBC (test code = WBC) 8.6 10 3.7-12.0 RBC (test code = RBC) 4.53 10 3.60-5.50 HGB (test code = HGB) 14.4 g/dL 11.5-15.6 HCT (test code = HCT) 44.2 % 34.5-46.5 MCV (test code = MCV) 97.7 um 80.0-102.0 MCH (test code = MCH) 31.8 pg 25.0-34.1 MCHC (test code = MCHC) 32.6 g/dL 29.0-35.0 RDW (test code = RDW) 14.5 % 10.9-16.9 plt (test code = plt) 282 10 136-392 MPV (test code = MPV) 9.7 um 7.4-11.1 gran % (test code = gran %) 70.6 % 36.0-78.0 lymph % (test code = lymph %) 21.6 % 12.0-48.0 mono % (test code = mono %) 6.0 % 0.0-13.0 eos % (test code = eos %) 1 % 0-8 baso % (test code = baso %) 1 % 0-2 gran # (test code = gran #) 6.1 10 1.2-6.8 lymph # (test code = lymph #) 1.9 10 0.7-3.2 mono # (test code = mono #) 0.5 10 0.1-0.8 eos # (test code = eos #) 0.1 10 0.0-0.4 baso # (test code = baso #) 0.0 10 0.0-0.2 [facility] trachomat[facility] and Neisseria gonorrhoeae rRNA panel - Specimen by ANDREW with probe [id number] 00:00:00* Test Item Value Reference Range Interpretation Comme nts aptima combo 2 swab (CT) (te st code = aptima combo 2 swab (CT)) CT NEG negative aptima combo 2 swab (GC) (te st code = aptima combo 2 swab (GC)) GC NEG negative [facility], [id number] 09:36:40* Test Item Value Reference Range Interpretation Comme nts HCG (test code = HCG) negative [facility] Notes Date/Time Note Provider Source 2024-10-05 10:41:12 Chief Complaint Patient presents with Follow-up Hair/Scalp Problem Stephanie Pressley [facility] 2024-08-27 11:39:28 Chief Complaint Patient presents with Skin Problem Maria Del Carmen Pavon [facility] 2024-08-16 15:28:19 Chief Complaint Patient presents with Consultation Hormone Problem Francesca Reich CMA II [facility] 2024-07-26 11:01:59 Chief Complaint Patient presents with Follow-up Maria Del Carmen Pavon [facility] 2024-07-06 13:16:42 Chief Complaint Patient presents with Follow-up Follow up on weight management Latosha Veloz MA II [facility] 2024-06-28 13:29:56 Chief Complaint Patient presents with URI Patient has had a cough, and congestion x 1 and half weeks Anna Velázquez CMA I [facility] 2024-06-15 13:13:51 Chief Complaint Patient presents with Hair/Scalp Problem Maria Del Carmen Pavon [facility] 2024-05-24 10:42:48 Chief Complaint Patient presents with Follow-up Weight management Valeri Arce LVN [facility] 2024-04-24 09:47:36 Chief Complaint Patient presents with Physical Patient is not fasting. No other issues to discuss Latosha Veloz MA II [facility] 2024-03-23 10:29:01 Chief Complaint Patient presents with Establish Care No PCP in the past 3 years. Weight Problem Discuss weight loss options Skin Problem Skin tags on neck Excessive Sweating Latosha Veloz MA II [facility]
[2025-01-07] MEDS ORDERED: ONDANSETRON 4 MG/2 ML VIAL ONE (07:37)
[2025-01-07] MEDS ORDERED: MORPHINE 4 MG/ML SYR ONE (07:37)
[2025-01-07 07:46] LABS: Albumin 3.3 g/dL (3.4-5.0); Albumin/Globulin Ratio 0.9 (1.1-1.8); Anion Gap 8.1 mEq/L (5.0-15.0); Bilirubin Total 0.2 mg/dL (0.2-1.0); Globulin 3.8 g/dL (2.3-3.5); Potassium 4.1 mEq/L (3.5-5.1); Protein, Total 7.1 g/dL (6.4-8.2)
[2025-01-07 07:50] LABS: Absolute Eosinophils 0.1 K/uL (0-0.5); Absolute Monocytes 0.5 K/uL (0.1-1.3); Absolute Neutrophil 6.2 K/uL (1.8-8.0); Basophils % 0.3 % (0-1.3); Hematocrit 41.1 % (36.0-45.0); Hemoglobin 13.9 g/dL (12.0-15.0); MCH 31.8 pg (27.0-35.0); MCHC 33.9 g/dL (32.0-36.0); MCV 93.8 fL (80-100); MPV 8.6 fL (7.6-11.3); Monocytes % 6.1 % (3.3-12.3); Neutrophils % 69.6 % (41.7-73.7); Nucleated Red Blood Cells % 0.1 % (0-0); Platelets 274 thou/uL (152-406); RBC Red Blood Cell Count 4.38 M/uL (3.86-4.86); Red Cell Distribution Width 13.5 % (12.1-15.2)
[2025-01-07 07:59] LABS: Specific Gravity 1.022 (1.005-1.030); Sqamous Epithelial <5 /HPF (None Seen); Urine Bacteria None Seen /HPF (<20); Urine Bilirubin NEGATIVE (Negative); Urine Blood 3+ (OVER) (Negative); Urine Clarity Turbid (Clear); Urine Color Light-Yellow (Yellow); Urine Culture Reflex Order NOT NEEDED; Urine Glucose NEGATIVE (Negative); Urine Ketones 2+ (Negative); Urine Microscopic Reflex YN ORDER UMIC; Urine Mucus Slight /HPF (None Seen); Urine Nitrite NEGATIVE (Negative); Urine Protein TRACE (Negative); Urine RBC 21-50 /HPF (None Seen); Urine Urobilinogen Normal (Normal); Urine pH 5.5 (5.0-7.0)
[2025-01-07 08:01] LABS: Specific Gravity 1.022 (1.005-1.030)
--- NOTE | 2025-01-07 08:17 | RAD REPORT ---
EXAMINATION: CT ABDOMEN AND PELVIS WITH CONTRAST CLINICAL INDICATION: Abdominal pain TECHNIQUE: CT abdomen and pelvis was performed, after the administration of 100 cc Isovue-300.. Sagit chris and coronal reconstructions were obtained. One or more of the following dose reduction techniques were used: Automated exposure control, adjustment of the mA and kV according to patient si ze, and iterative reconstruction. Unless otherwise specified, incidental findings do not require dedicated imaging follow-up. [id number]. Oral contrast was not given which limits evaluation of bowel and appendix. COMPARISON: .None FINDINGS: Liver, spleen, pancreas, adrenals and kidneys appear unremarkable No evidence of diverticulitis. Normal appendix. Tubal ligation clips are present. No adnexal mass. Subchondral sclerosis vertebral bodies L3 and L4 with disc space narrowing and vacuum phenomena. Mild anterior subluxation L3 on L4 : IMPRESSION: Subchondral sclerosis vertebral bodies L3 and L4 with disc space narrowing and vacuum phenomena. Most likely this is degenerative in nature. An infectious/inflammatory process can also have this appearance and should be correlated clinically with appropriate lab values
--- NOTE | 2025-01-07 08:29 | EDPHYS ---
Physician Documentation [facility] Name: Danielle Cody Age: 39 yrs Sex: Female : 1985 Arrival Date: 01/07/2025 Time: 06:48 Bed 6 Private MD: ED Physician Steven Delgadillo HPI: 01/07 07:48 This 39 yrs old Female presents to ER via Ambulatory with complaints of Pelvic rn Pain, Vaginal Bleeding. 07:48 The patient presents with vaginal bleeding that is. Onset: The symptoms/episode rn began/occurred at an unknown time. Severity of symptoms: At their worst the symptoms were moderate, in the emergency department the symptoms have improved. The patient has experienced similar episodes in the past. The patient has been recently seen by a physician:. Patient reports intermittent lower abdominal pain associated with cramping and vaginal bleeding. Patient has had this intermittently for months, has already seen a physician for it, obtained ultrasound. Patient reports ultrasound showed some suspicion for malignancy and has biopsy scheduled with Dr. Fermin. Patient reports the abdominal cramping was worse today but not necessarily of the bleeding. Denies dizziness or shortness of breath. Historical: - Allergies: 07:03 No Known Allergies; br2 - PMHx: 07:03 Gastroesophageal reflux disease; br2 - PSHx: 07:03 Ligation of fallopian tube; br2 - Immunization history:: Adult Immunizations up to date. - Infectious Disease History:: Denies. - Social history:: Smoking status: Reported history of juuling and/or vaping. Patient uses alcohol, occasionally. Patient/guardian denies using street drugs. - Family history:: not pertinent. - Hospitalizations: : No recent hospitalization is reported. ROS: 07:48 Constitutional: Negative for fever, chills, and weight loss, Cardiovascular: Negative rn for chest pain, palpitations, and edema, Respiratory: Negative for shortness of breath, cough, wheezing, and pleuritic chest pain, Abdomen/GI: Positive for lower abdominal cramping Back: Positive for lower back pain : Positive for vaginal bleeding MS/Extremity: Negative for injury and deformity, Exam: 07:48 Constitutional: This is a well developed, well nourished patient who is awake, alert, rn and in no acute distress. Cardiovascular: Regular rate and rhythm. No pulse deficits. Respiratory: No increased work of breathing, no retractions or nasal flaring. Abdomen/GI: Soft, suprapubic tenderness without peritoneal signs Vital Signs: 07:01 BP 123 / 80; Pulse 77; Resp 18; Temp 97.2(O); Pulse Ox 99% on R/A; Weight 99.79 kg; br2 Height 5 ft. 4 in. ; Pain 10/10; 07:30 BP 127 / 90; Pulse 74; Resp 16; Pulse Ox 96% on R/A; db 08:30 BP 116 / 84; Pulse 72; Resp 16; Pulse Ox 99% on R/A; db 07:01 Body Mass Index 37.76 (99.79 kg, 162.56 cm) br2 07:01 Pain Scale: Adult br2 MDM: 06:59 Medical Screening Exam initiated rn 08:27 Differential diagnosis: endometriosis, malignancy, menometrorrhagia, menorrhea, rn Fibroid. Data reviewed: vital signs, nurses notes, lab test result(s), radiologic studies, CT scan, and as a result, I will discharge patient. Counseling: I had a detailed discussion with the patient and/or guardian regarding the historical points, exam findings, and any diagnostic results supporting the discharge/admit diagnosis, lab results, radiology results, the need for outpatient follow up, to return to the emergency department if symptoms worsen or persist or if there are any questions or concerns that arise at home. Response to treatment: the patient's symptoms have mildly improved after treatment, and as a result, I will discharge patient. Special discussion: I discussed with the patient/guardian in detail that at this point there is no indication for admission to the hospital. It is understood, however, that if the symptoms persist or worsen the patient needs to return immediately for re-evaluation. Based on the history and exam findings, there is no indication for further emergent testing or inpatient evaluation. I discussed with the patient/guardian the need to see the OB Gyne specialist for further evaluation of the symptoms. ED course: No acute findings and workup. CT abdomen pelvis shows degenerative back disease but nothing acute. Normal WBC. No other explanation of patient's lower abdominal pain. Has appointment for biopsy and malignancy rule out. Patient does report years of chronic lower back pain and has had imaging prior. No symptoms to suggest infection of the spine at this time. Patient is afebrile, normal WBC, and no drug use. Will discharge home with as needed pain medication and given return precautions. Normal H\T\H.. 01/07 07:12 Order name: CBC with Diff; Complete Time: 08:22 rn 01/07 07:12 Order name: CMP; Complete Time: 08: rn 01/07 07:12 Order name: Lipase; Complete Time: 08:22 rn 01/07 07:12 Order name: Test, Urine; Complete Time: 08: rn 01/07 07:12 Order name: Urinalysis w/ reflexes; Complete Time: 08: rn 01/07 07:12 Order name: CT Abd/Pelvis - IV Contrast Only; Complete Time: 08: rn 01/07 07:12 Order name: IV Saline Lock; Complete Time: 07:24 rn 01/07 07:12 Order name: Labs collected and sent; Complete Time: 07:24 rn Administered Medications: 07:45 Drug: morphine IVP or IV 4 mg IVP once over 4 mins Route: IVP; Infused Over: 4 mins; db Site: right antecubital; 08:59 Follow up: Response: No adverse reaction; Pain is decreased db 07:45 Drug: Ondansetron IVP 4 mg IVP once; over 2 minutes Route: IVP; Site: right antecubital;db 08:59 Follow up: Response: No adverse reaction db Disposition Summary: 01/07/25 08:28 Discharge Ordered Notes: Location: Home rn Problem: an ongoing problem rn Symptoms: have improved rn Condition: Stable rn Diagnosis - Lower abdominal pain, unspecified rn - Abnormal uterine and vaginal bleeding, unspecified rn Followup: rn - With: Divya Fermin MD - When: As needed - Reason: Recheck today's complaints, Re-evaluation by your physician Discharge Instructions: - Discharge Summary Sheet rn - Abdominal Pain, Adult rn Forms: - Medication Reconciliation Form rn - 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 EDMS EDMS 07:12 07:12 COMPREHENSIVE METABOLIC PANEL+C.LAB.BRZ ordered. EDMS EDMS 07:12 07:12 LIPASE+C.LAB.BRZ ordered. EDMS EDMS 07:12 07:12 Test, Urine+UC.LAB.BRZ ordered. EDMS EDMS 07: 07:12 Urinalysis+U.LAB.BRZ ordered. EDMS EDMS 07:13 07:13 Abdomen Pelvis W Con+CT.RAD.BRZ ordered. EDMS EDMS
--- NOTE | 2025-01-07 08:29 | ER ---
Nurse's Notes [facility] Name: Danielle Cody Age: 39 yrs Sex: Female : 1985 Arrival Date: 01/07/2025 Time: 06:48 Bed 6 Private MD: Diagnosis: Lower abdominal pain, unspecified;Abnormal uterine and vaginal bleeding, unspecified Presentation: 01/07 07:01 Chief complaint: Patient states: PT C/O PELVIC PAIN THAT RADIATES TO LOWER BACK WITH br2 VAGINAL BLEEDING. PT HAD AN ULTRA SOUND THAT WAS ABNORMAL AND HAS A BIOPSY SCHEDULED. Coronavirus screen: Client denies travel out of the [place] in the last 14 days. Ebola Screen: Patient denies exposure to infectious person. Initial Sepsis Screen: Does the patient meet any 2 criteria? No. Patient's initial sepsis screen is negative. Does the patient have a suspected source of infection? No. Patient's initial sepsis screen is negative. Risk Assessment: Do you want to hurt yourself or someone else? Patient reports no desire to harm self or others. Onset of symptoms is unknown. 07:01 Method Of Arrival: Ambulatory br2 07:01 Acuity: [place] 3 br2 Triage Assessment: 07:03 General: Appears uncomfortable, Behavior is calm, cooperative. Pain: Complains of pain br2 in groin Pain radiates to lumbar area, left low back and right low back. : Reports vaginal bleeding that is with clots. Historical: - Allergies: 07:03 No Known Allergies; br2 - PMHx: 07:03 Gastroesophageal reflux disease; br2 - PSHx: 07:03 Ligation of fallopian tube; br2 - Immunization history:: Adult Immunizations up to date. - Infectious Disease History:: Denies. - Social history:: Smoking status: Reported history of juuling and/or vaping. Patient uses alcohol, occasionally. Patient/guardian denies using street drugs. - Family history:: not pertinent. - Hospitalizations: : No recent hospitalization is reported. Screenin:23 [facility] ED Fall Risk Assessment (Adult) History of falling in the last 3 months, db including since admission No falls in past 3 months (0 pts) Confusion or Disorientation No (0 pts) Intoxicated or Sedated No (0 pts) Impaired Gait No (0 pts) Mobility Assist Device Used No (0 pt) Altered Elimination No (0 pt) Score/Fall Risk Level 0 - 2 = Low Risk Oriented to surroundings, Maintained a safe environment. Abuse screen: Denies threats or abuse. Denies injuries from another. Nutritional screening: No deficits noted. Tuberculosis screening: No symptoms or risk factors identified. Assessment: 07:22 Reassessment: Patient appears in no apparent distress at this time. Patient and/or db family updated on plan of care and expected duration. Pain level reassessed. Patient is alert, oriented x 3, equal unlabored respirations, skin warm/dry/pink. General: Appears in no apparent distress. comfortable, Behavior is calm, cooperative. Pain: Complains of pain in pelvis. Neuro: Level of Consciousness is awake, alert, obeys commands, Oriented to person, place, time, situation. Respiratory: Airway is patent Respiratory effort is even, unlabored, Respiratory pattern is regular, symmetrical. GI: Abdomen is tender to palpation Reports lower abdominal pain. :. 08:58 Reassessment: Patient appears in no apparent distress at this time. Patient and/or db family updated on plan of care and expected duration. Pain level reassessed. Patient is alert, oriented x 3, equal unlabored respirations, skin warm/dry/pink. Patient denies pain at this time. Patient states feeling better. Patient states symptoms have improved. Vital Signs: 07:01 BP 123 / 80; Pulse 77; Resp 18; Temp 97.2(O); Pulse Ox 99% on R/A; Weight 99.79 kg; br2 Height 5 ft. 4 in. ; Pain 10/10; 07:30 BP 127 / 90; Pulse 74; Resp 16; Pulse Ox 96% on R/A; db 08:30 BP 116 / 84; Pulse 72; Resp 16; Pulse Ox 99% on R/A; db 07:01 Body Mass Index 37.76 (99.79 kg, 162.56 cm) br2 07:01 Pain Scale: Adult br2 ED Course: 06:52 Patient arrived in ED. [id number] 06:59 Steven Delgadillo MD is Attending Physician. rn 07:01 Nita Turcios RN is Primary Nurse. br2 07:03 Triage completed. br2 07:03 Arm band placed on. br2 07:07 Primary Nurse role handed off by Nita Turcios RN db 07:07 Shaina Solano, RN is Primary Nurse. db 07:18 Initial lab(s) drawn, by me, sent to lab. Inserted saline lock: 20 gauge in right db antecubital area, using aseptic technique. Blood collected. Flushed with 10 mL NS. 07:23 Patient has correct armband on for positive identification. Bed in low position. Call db light in reach. Side rails up X 1. Warm blanket given. 08:10 CT Abd/Pelvis - IV Contrast Only In Process Unspecified. EDMS 08:28 Divya Fermin MD is Referral Physician. rn 08:58 Provided Education on: DISCHARGE AND FOLLOWUP. Pulse ox on. NIBP on. db 08:58 No provider procedures requiring assistance completed. IV discontinued, intact, db bleeding controlled, No redness/swelling at site. Administered Medications: 07:45 Drug: morphine IVP or IV 4 mg IVP once over 4 mins Route: IVP; Infused Over: 4 mins; db Site: right antecubital; 08:59 Follow up: Response: No adverse reaction; Pain is decreased db 07:45 Drug: Ondansetron IVP 4 mg IVP once; over 2 minutes Route: IVP; Site: right antecubital;db 08:59 Follow up: Response: No adverse reaction db Medication: 07:51 VIS not applicable for this client. db Outcome: 08:28 Discharge ordered by . rn 08:58 Discharged to home ambulatory, db 08:58 Condition: stable 08:58 Discharge instructions given to patient, Instructed on discharge instructions, follow up and referral plans. Prescriptions given X 1, 09:05 Patient left the ED. db Signatures: Dispatcher [employer] EDMS Steven Delgadillo MD MD rn Jeffries, Jennifer [id number] Shaina Solano, RN RN db Nita Turcios RN RN br2
[2025-01-07 09:20] VITALS: TEMP 97.2
[2025-01-07 09:32] VITALS: BP 116/84; O2SAT 99
== END 2025-01-07 09:05 | disposition home or self-care (01) ==
LOC: ER 06:48
DX: R10.30 Lower abdominal pain, unspecified (principal); N93.9 Abnormal uterine and vaginal bleeding, unspecified
CPT/HCPCS: 85025; 81001; 36415; 81025; 83690; 80053; 74177; 96375; 96374; 99284; Q9967; J2405